=== PATIENT | female | born 1930 | race Caucasian/White ===

== ENCOUNTER 2017-03-06 14:00 | Inpatient (IN) | payer MEDICARE, OTHER ==
--- NOTE | 2017-03-06 13:28 | US ---
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 Patient stated has had bloody drainage from right axilla x 3 weeks and right arm swelling x 1 week. Last August had squamous cell CA removed from right wrist with question of right axillary n ode biopsy. Now has skin redness at right breast and chest wall and arm. SIDE PERFORMED: Right [employer] notes: Limited exam due to patient's inability to abduct arm or externally rotate. FINDINGS: Right Arm: Positive for DVT involving the Right Axillary Vein and in one of 2 Brachial Veins. There i s complex soft tissue surrounding the axillary vessels measuring 7.9 x 6.6 x 7.0cm. The clean in places operator will call the physician's office following dictation. IMPRESSION: 1. Exam positive for DVT involving the right axillary vein and one of 2 brachial veins. 2. Complex soft tissues surrounding the axillary vessels measuring up to 7.9 cm could represent phleg monous change in the setting of soft tissue infection. No discrete abscess.
[2017-03-06] MEDS ORDERED: SODIUM CHLORIDE 0.9% 500 ML IV STA (16:15)
[2017-03-06] MEDS ORDERED: HYDROmorphone 1 MG/ML 1 ML SYRINGE IVP STA ×2 (16:19→18:01)
--- NOTE | 2017-03-06 16:41 | ED ---
General Adult HPI - General Chief complaint: Extremity Injury, Upper Time Seen by Provider: 03/06/17 16:03 Source: patient, family, RN notes reviewed Mode of arrival: wheelchair - History of Present Illness Initial comments: 86-year-old female presents to the emergency department with a chief complaint of right arm swelling and blood clot. Patient has been struggling with this right arm swelling ever since she was diagnosed with sinus cancer and she had surgery on the lymph node where the cancer had metastases to. Patient states she's had compression on and off. Patient states that they stated an ultrasound and it was positive for blood clots that she was referred to the emergency department. Patient states she has had pain up and under the arm. Patient denies any fevers chills cough cold runny nose with this. Patient states that she sees Dr. Isaac for her cancer treatment. Patient states she continued to have the pain and discomfort so she was concerned so she thought that she should be evaluated.Patient denies any recent fever, chills, shortness of breath, chest pain, back pain, abdominal pain, nausea vomiting, numbness or tingling, dysuria or hematuria, constipation or diarrhea, headaches or visual changes, or any other current symptoms. - Related Data Home Medications Medication Instructions Recorded Confirmed Hydrochlorothiazide 25 mg PO DAILY 09/09/16 03/06/17 Losartan Potassium [Cozaar] 100 mg PO DAILY 09/09/16 03/06/17 Acetaminophen-Codeine 300-30mg 1 tab PO BID PRN 03/06/17 03/06/17 [Tylenol #3] Allergies Allergy/AdvReac Type Severity Reaction Status Date / Time No Known Allergies Allergy Verified 03/06/17 17:08 Review of Systems ROS Statement: Those systems with pertinent positive or pertinent negative responses have been documented in the HPI. ROS Other: All systems not noted in ROS Statement are negative. Past Medical History Past Medical History: Cancer, Hypertension Additional Past Medical History / Comment(s): LUMP RT AXILLA-PRESENT FOR APPROX 1 [id number] AND DRAINING,CATARACT RT EYE,SQUAMOUS CELL CA TO RT HAND-14 RADIATION FEBRUARY 2016 History of Any Multi-Drug Resistant Organisms: None Reported Past Surgical History: Back Surgery Additional Past Surgical History / Comment(s): SQUAMOUS CELL CA REMOVED AND GRAFT TO RT HAND,LT CATARACT,BENIGN LUMP REMOVED RT BREAST Past Anesthesia/Blood Transfusion Reactions: No Reported Reaction Additional Past Anesthesia/Blood Transfusion Reaction / Comment(s): VERTIGO,NO HX BLOOD TRANSFUSION Past Psychological History: Depression Smoking Status: Never smoker Past Alcohol Use History: None Reported Additional Past Alcohol Use History / Comment(s): 1 GLASS OF WINE BEFORE DINNER Past Drug Use History: None Reported - Past Family History Mother Family Medical History: No Reported History Father Additional Family Medical History / Comment(s): DIVERTICULITIS Brother(s) Family Medical History: Cancer Additional Family Medical History / Comment(s): LUNG General Exam General appearance: alert, in no apparent distress Head exam: Present: atraumatic, normocephalic, normal inspection ENT exam: Present: normal exam, mucous membranes moist Neck exam: Present: normal inspection. Absent: tenderness, meningismus, lymphadenopathy Respiratory exam: Present: normal lung sounds bilaterally. Absent: respiratory distress, wheezes, rales, rhonchi, stridor Cardiovascular Exam: Present: regular rate, normal rhythm, normal heart sounds. Absent: systolic murmur, diastolic murmur, rubs, gallop, clicks Extremities exam: Present: tenderness (More located around the elbow for location of pain to touch.). Absent: normal inspection (patient has a swollen right upper extremity from the shoulder to the hand), full ROM (Due to the range of motion due to pain) Neurological exam: Present: alert, oriented X3, CN II-XII intact. Absent: motor sensory deficit Psychiatric exam: Present: normal affect, normal mood Skin exam: Present: warm, dry, intact, normal color. Absent: rash Course Vital Signs 03/06/17 03/06/17 14:34 18:05 Temperature 99.4 F 98.4 F Pulse Rate 88 78 Respiratory 18 18 Rate Blood Pressure 137/63 172/65 O2 Sat by Pulse 95 94 L Oximetry - Reevaluation(s) Reevaluation #1: 03/06/17 18:14 Dr. isaac was contacted [place] the patient to be started on Zaroxolyn so. Medical Decision Making - Medical Decision Making 86 yo female presents to the ER emergency department with a chief complaint of ET extending from the axilla area to brachial arteries. At this time the patient does also appear to have a concern for soft tissue cellulitis to the right axilla where she did have surgery in the past. At this time we did do a culture of this. At this time we will admit the patient we will consult Dr. Brewer as well as Dr. Funez and admit to Dr. Olivas. We did discuss we will start antibiotics for the patient. Patient's family are in agreement and all questions have been answered. - Lab Data Result diagrams: 03/06/17 16:35 03/06/17 16:35 Lab Results 03/06/17 03/06/17 03/06/17 Range/Units 16:35 16:35 16:35 WBC 10.3 (3.8-10.6) k/uL RBC 3.98 (3.80-5.40) m/uL Hgb 11.5 (11.4-16.0) gm/dL Hct 36.1 (34.0-46.0) % MCV 90.8 (80.0-100.0) fL MCH 28.9 (25.0-35.0) pg MCHC 31.8 (31.0-37.0) g/dL RDW 14.5 (11.5-15.5) % Plt Count 371 (150-450) k/uL Neutrophils % 82 % Lymphocytes % 7 % Monocytes % 9 % Eosinophils % 0 % Basophils % 0 % Neutrophils # 8.5 H (1.3-7.7) k/uL Lymphocytes # 0.8 L (1.0-4.8) k/uL Monocytes # 0.9 (0-1.0) k/uL Eosinophils # 0.0 (0-0.7) k/uL Basophils # 0.0 (0-0.2) k/uL PT 10.3 (9.0-12.0) sec INR 1.0 (<1.1) APTT 25.3 (22.0-30.0) sec Sodium 135 L (137-145) mmol/L Potassium 3.8 (3.5-5.1) mmol/L Chloride 97 L (98-107) mmol/L Carbon Dioxide 30 (22-30) mmol/L Anion Gap 8 mmol/L BUN 14 (7-17) mg/dL Creatinine 0.57 (0.52-1.04) mg/dL Est GFR (MDRD) Af Amer >60 (>60 ml/min/1.73 sqM) Est GFR (MDRD) Non-Af >60 (>60 ml/min/1.73 sqM) Glucose 111 H (74-99) mg/dL Calcium 9.9 (8.4-10.2) mg/dL Total Bilirubin 0.4 (0.2-1.3) mg/dL AST 18 (14-36) U/L ALT 20 (9-52) U/L Alkaline Phosphatase 72 (38-126) U/L Total Protein 6.5 (6.3-8.2) g/dL Albumin 2.9 L (3.5-5.0) g/dL - Radiology Data Radiology results: report reviewed, image reviewed Interpreted by me: Outpatient was reviewed. Disposition Clinical Impression: Cellulitis of right axilla, DVT of right axillary vein, acute, Hyponatremia Disposition: ADMITTED IP TO THIS HOSP Condition: Stable Referrals: Art Caicedo DO [Primary Care Provider] - 1-2 days Time of Disposition: 18:05 Decision Date: 03/06/17 Decision Time: 18:05
[2017-03-06 17:47] LABS: Basophils % (A) 0 %; Eosinophils % (A) 0 %; HCT 36.1 % (34.0-46.0); HDW 2.48; HGB 11.5 gm/dL (11.4-16.0); Luc % (Auto) 2; Lymphocytes # (A) 0.8 k/uL (1.0-4.8); Lymphocytes % (A) 7 %; MCH 28.9 pg (25.0-35.0); MCHC 31.8 g/dL (31.0-37.0); MCV 90.8 fL (80.0-100.0); Mean Platelet Volume 6.4; Monocytes # (A) 0.9 k/uL (0-1.0); Monocytes % (A) 9 %; Neutrophils # (A) 8.5 k/uL (1.3-7.7); Neutrophils % (A) 82 %; RBC 3.98 m/uL (3.80-5.40); RDW 14.5 % (11.5-15.5); WBC 10.3 k/uL (3.8-10.6); WBC (Perox) 10.19
[2017-03-06 17:55] LABS: ALT 20 U/L (9-52); AST 18 U/L (14-36); Alkaline Phosphatase 72 U/L (38-126); Anion Gap 8 mmol/L; Blood Urea Nitrogen 14 mg/dL (7-17); Calcium 9.9 mg/dL (8.4-10.2); Carbon Dioxide 30 mmol/L (22-30); Chloride 97 mmol/L (98-107); Glucose 111 mg/dL (74-99); Non-African American GFR(MDRD) >60 (>60 ml/min/1.73 sqM); Potassium 3.8 mmol/L (3.5-5.1); Sodium 135 mmol/L (137-145); Total Bilirubin 0.4 mg/dL (0.2-1.3); Total Protein 6.5 g/dL (6.3-8.2)
[2017-03-06 18:04] LABS: Partial Thromboplastin Time 25.3 sec (22.0-30.0); Prothrombin Time 10.3 sec (9.0-12.0)
[2017-03-06] MEDS ORDERED: ONDANSETRON 4 MG/2 ML VIAL IVP PRN (18:06)
[2017-03-06] MEDS ORDERED: NALOXONE 0.4 MG/ML 1 ML VIAL IV PRN (18:06)
[2017-03-06] MEDS ORDERED: RIVAROXABAN 15 MG TAB PO STA (18:10)
[2017-03-06] MEDS ORDERED: Acetaminophen-Codeine 300-30mg TAB PO PRN (18:13)
[2017-03-06] MEDS ORDERED: AMPICILLIN-SULBACTAM 1.5 GM in SODIUM CHLORIDE 0.9% 50 ML IVPB STA (18:15)
[2017-03-06] MEDS: SODIUM CHLORIDE 0.9% 1,000 ML IV SCH (19:12)
[2017-03-06 20:26] VITALS: BMI 24.7
[2017-03-07] MEDS: HYDROmorphone 1 MG/ML 1 ML SYRINGE IV PRN ×5 (02:14→20:15)
[2017-03-07] MEDS: SODIUM CHLORIDE 0.9% 1,000 ML IV SCH ×2 (05:56→22:43)
[2017-03-07] MEDS ORDERED: RIVAROXABAN 15 MG TAB PO SCH (09:00)
[2017-03-07 09:30] LABS: Basophils % (A) 0 %; CH 29.1; CHCM 32.2; Eosinophils # (A) 0.1 k/uL (0-0.7); Eosinophils % (A) 1 %; HCT 35.8 % (34.0-46.0); HDW 2.52; HGB 11.7 gm/dL (11.4-16.0); Luc # (Auto) 0.17; Luc % (Auto) 2; Lymphocytes # (A) 0.5 k/uL (1.0-4.8); Lymphocytes % (A) 6 %; MCH 29.6 pg (25.0-35.0); MCHC 32.7 g/dL (31.0-37.0); MCV 90.6 fL (80.0-100.0); Mean Platelet Volume 6.9; Monocytes # (A) 0.4 k/uL (0-1.0); Monocytes % (A) 4 %; Neutrophils # (A) 7.8 k/uL (1.3-7.7); Neutrophils % (A) 86 %; RBC 3.96 m/uL (3.80-5.40); RDW 14.7 % (11.5-15.5); WBC 9.1 k/uL (3.8-10.6); WBC (Perox) 9.06
[2017-03-07] MEDS: HYDROCHLOROTHIAZIDE 25 MG TAB PO SCH (09:36)
[2017-03-07] MEDS: LOSARTAN 50 MG TAB PO SCH (09:36)
[2017-03-07] MEDS: RIVAROXABAN 15 MG TAB PO SCH ×2 (09:36→16:30)
[2017-03-07] MEDS ORDERED: ALPRAZolam 0.5 MG TAB PO PRN (09:46)
--- NOTE | 2017-03-07 15:19 | P.GSCN ---
History of Present Illness Consult date: 03/07/17 Reason for Consult: Infection in the axilla History of present illness: The patient's pleasant 86-year-old female who I have seen in the past. Last fall I did a biopsy of axillary mass that came back as metastatic squamous cell cancer. She has subsequently underwent radiation. She finished that about 2 months ago. She recently developed acute swelling in the right upper extremity along with drainage in her axilla. An quite a bit of trouble moving her arm. And pain in the arm. Review of Systems All systems: negative Past Medical History Past Medical History: Cancer, Hypertension Additional Past Medical History / Comment(s): Metastatic SQUAMOUS CELL CA from RT HAND to her axilla-14 RADIATION FEBRUARY 2016. Biopsy right axilla History of Any Multi-Drug Resistant Organisms: None Reported Past Surgical History: Back Surgery Additional Past Surgical History / Comment(s): SQUAMOUS CELL CA REMOVED AND GRAFT TO RT HAND, biopsy right axilla ,LT CATARACT,BENIGN LUMP REMOVED RT BREAST Past Anesthesia/Blood Transfusion Reactions: No Reported Reaction Additional Past Anesthesia/Blood Transfusion Reaction / Comm: VERTIGO,NO HX BLOOD TRANSFUSION Past Psychological History: Depression Smoking Status: Never smoker Past Alcohol Use History: None Reported Additional Past Alcohol Use History / Comment(s): 1 GLASS OF WINE BEFORE DINNER Past Drug Use History: None Reported - Past Family History Mother Family Medical History: No Reported History Father Additional Family Medical History / Comment(s): DIVERTICULITIS Brother(s) Family Medical History: Cancer Additional Family Medical History / Comment(s): LUNG Medications and Allergies Home Medications Medication Instructions Recorded Confirmed Type Hydrochlorothiazide 25 mg PO DAILY 09/09/16 03/06/17 History Losartan Potassium [Cozaar] 100 mg PO DAILY 09/09/16 03/06/17 History Acetaminophen-Codeine 300-30mg 1 tab PO BID PRN 03/06/17 03/06/17 History [Tylenol #3] Allergies Allergy/AdvReac Type Severity Reaction Status Date / Time No Known Allergies Allergy Verified 03/06/17 17:08 Surgical - Exam Osteopathic Statement: *. No significant issues noted on an osteopathic structural exam other than those noted in the History and Physical/Consult. Vital Signs Temp Pulse Resp BP Pulse Ox 99.4 F 88 18 137/63 95 03/06/17 14:34 03/06/17 14:34 03/06/17 14:34 03/06/17 14:34 03/06/17 14:34 - General well developed, well nourished - Eyes normal ocular movement - Integumentary Mild erythema and swelling right upper extremity encompassing the right shoulder. The right axilla has a significant amount of serous drainage dressing along with some necrotic appearing tissue. There is an approximately 2 cm skin lesion with some breakdown that appears to be recurrent squamous cell cancer Results - Labs 03/07/17 08:43 03/06/17 16:35 Abnormal Lab Results - Last 24 Hours (Table) 03/07/17 Range/Units 08:43 Neutrophils # 7.8 H (1.3-7.7) k/uL Lymphocytes # 0.5 L (1.0-4.8) k/uL Microbiology - Last 24 Hours (Table) 03/06/17 18:30 Gram Stain - Preliminary Axilla - Right Wound Culture - Preliminary - Imaging Additional studies: Report from right axilla reviewed Assessment and Plan (1) Metastatic squamous cell carcinoma Status: Acute (2) Cellulitis of right axilla Status: Acute (3) DVT of right axillary vein, acute Status: Acute Plan: She appears to have recurrent squamous cell cancer in the right axilla. There is likely a component of cellulitis due to the fact the wound is open. At present I would treat the DVT. I would give her a course of antibiotics. Physical therapy for range of motion. I did discuss the case with Dr. Isaac. I can reevaluate her in the office in 2-4 weeks. We'll see how the swelling in her arm is doing. She may be a candidate for further resection of the metastasis , although I doubt that would be curative. I will follow her up in the office.
[2017-03-07] MEDS ORDERED: HEPARIN SODIUM,PORCINE 5,000 UNIT/ML 1 ML VIAL IV PRN (16:44)
--- NOTE | 2017-03-07 16:44 | P.CONS ---
History of Present Illness - Reason for Consult Consult date: 03/07/17 DVT Requesting physician: Estefany Genao - Chief Complaint RUE pain and swelling - History of Present Illness Ms. Perez is a very pleasant female patient who has seen Dr. Isaac in the past. She initially presented to her PCP in late 07/12 with a lump in the rt. armpit that was mildly painful, skin was reddened, no improvement with a course of antibiotics. She had an US on 08/02/16 revealing a 3.9 x 3.4 x 4.1 cm irregular mass, core biopsy on 08/16/16 revealed fibroadipose and skeletal muscle tissue with scant atypical squamous cells. She was referred to Dr. Isaac further evaluation and recommendations. She had a history of squamous cell skin cancer at the [address] treated with surgical excision and skin grafting about a year prior. She had an excisional biopsy on 09/13/16 revealing metastatic squamous cell cancer in a node with extranodal spread. Staging PET was done showing no other sites of disease. She completed XRT about 2 months ago. She is admitted due to increased and progressive pain and redness in the right axilla over the last 2 weeks, she states there has been persistent drainage from the axilla since radiation. She denies any fever, she does not want to move the RUE due to severe pain, it hurts to close her hand, she denies numbness or tingling. No other physical c/o on a 10 point ROS. Review of Systems All systems: negative Constitutional: Reports as per HPI Past Medical History Past Medical History: Cancer, Hypertension Additional Past Medical History / Comment(s): Metastatic SQUAMOUS CELL CA from RT HAND to her axilla-14 RADIATION FEBRUARY 2016. Biopsy right axilla History of Any Multi-Drug Resistant Organisms: None Reported Past Surgical History: Back Surgery Additional Past Surgical History / Comment(s): SQUAMOUS CELL CA REMOVED AND GRAFT TO RT HAND, biopsy right axilla ,LT CATARACT,BENIGN LUMP REMOVED RT BREAST Past Anesthesia/Blood Transfusion Reactions: No Reported Reaction Additional Past Anesthesia/Blood Transfusion Reaction / Comm: VERTIGO,NO HX BLOOD TRANSFUSION Past Psychological History: Depression Smoking Status: Never smoker Past Alcohol Use History: None Reported Additional Past Alcohol Use History / Comment(s): 1 GLASS OF WINE BEFORE DINNER Past Drug Use History: None Reported - Past Family History Mother Family Medical History: No Reported History Father Additional Family Medical History / Comment(s): DIVERTICULITIS Brother(s) Family Medical History: Cancer Additional Family Medical History / Comment(s): LUNG Medications and Allergies Home Medications Medication Instructions Recorded Confirmed Type Hydrochlorothiazide 25 mg PO DAILY 09/09/16 03/06/17 History Losartan Potassium [Cozaar] 100 mg PO DAILY 09/09/16 03/06/17 History Acetaminophen-Codeine 300-30mg 1 tab PO BID PRN 03/06/17 03/06/17 History [Tylenol #3] Allergies Allergy/AdvReac Type Severity Reaction Status Date / Time No Known Allergies Allergy Verified 03/06/17 17:08 Physical Exam Vitals: Vital Signs Temp Pulse Pulse Resp BP BP Pulse Ox 03/07/17 15:57 16 03/07/17 07:00 98.5 F 83 16 154/69 93 L 03/06/17 23:00 98.6 F 80 16 163/73 93 L 03/06/17 19:14 97.6 F 85 18 159/79 94 L 03/06/17 18:05 98.4 F 78 18 172/65 94 L Intake and Output 03/07/17 03/07/17 03/07/17 06:59 14:59 22:59 Other: # Voids 1 - Constitutional General appearance: cooperative, severe distress - EENT Eyes: anicteric sclerae, EOMI, PERRLA, normal appearance ENT: normal oropharynx - Neck Neck: no lymphadenopathy - Respiratory Respiratory: bilateral: CTA - Cardiovascular Heart sounds: normal: S1, S2 - Gastrointestinal General gastrointestinal: no absent bowel sounds, no decreased bowel sounds, no distended, no hepatomegaly, no hyperactive bowel sounds, normal bowel sounds, no organomegaly, no rigid, no scaphoid, soft, no splenomegaly, no tenderness, no umbilical hernia, no ventral hernia - Integumentary Right axilla swollen, reddened, foul odor, moderate amount of bloody drainage, the right arm and hand are slightly swollen, pain with passive movement of the arm. - Neurologic Generalized tremor is noted Neurologic: CNII-XII intact - Musculoskeletal Musculoskeletal: generalized weakness - Psychiatric Psychiatric: A&O x's 3, appropriate affect, intact judgment & insight Results CBC & Chem 7: 03/07/17 08:43 03/06/17 16:35 Labs: Abnormal Lab Results - Last 24 Hours (Table) 03/07/17 Range/Units 08:43 Neutrophils # 7.8 H (1.3-7.7) k/uL Lymphocytes # 0.5 L (1.0-4.8) k/uL Microbiology - Last 24 Hours (Table) 03/06/17 18:30 Gram Stain - Preliminary Axilla - Right Wound Culture - Preliminary Venous US: report reviewed Assessment and Plan (1) DVT of right axillary vein, acute Narrative/Plan: Known DVT of RUE, felt to be related surgery and radiation therapy to the area. Pt was stared in oral anticoagulation but due to pt being symptomatic she will be switched over to heparin drip to see if DVT symptoms can be alleviated. Last dose of xarelto was 0940 so plan to start heparin drip at 2130, did discuss with RN caring for pt. Status: Acute (2) Metastatic squamous cell carcinoma Narrative/Plan: Pt is s/p surgery and XRT about 2 months ago. The area is very tender, warm with notable foul drainage. ID has been consulted, cultures ordered. We will follow and see how pt progresses, the presentation could be related to malignancy so Surgery will be consulted as appropriate and based on response to treatment. Status: Chronic
[2017-03-07] MEDS ORDERED: HEPARIN SODIUM,PORCINE/D5W PMX 25,000 UNIT in DEXTROSE/WATER 1 500ML.BAG IV SCH (16:45)
[2017-03-07 18:01] LABS: Basophils % (A) 0 %; CH 28.8; CHCM 31.2; Eosinophils # (A) 0.1 k/uL (0-0.7); Eosinophils % (A) 1 %; HCT 33.1 % (34.0-46.0); HDW 2.48; HGB 10.2 gm/dL (11.4-16.0); Hypochromasia Slight; Luc % (Auto) 3; Lymphocytes # (A) 0.6 k/uL (1.0-4.8); Lymphocytes % (A) 7 %; MCH 28.4 pg (25.0-35.0); MCHC 30.7 g/dL (31.0-37.0); MCV 92.6 fL (80.0-100.0); Mean Platelet Volume 6.3; Monocytes # (A) 0.6 k/uL (0-1.0); Monocytes % (A) 7 %; Neutrophils # (A) 6.7 k/uL (1.3-7.7); Neutrophils % (A) 82 %; RBC 3.58 m/uL (3.80-5.40); RDW 14.5 % (11.5-15.5); WBC 8.2 k/uL (3.8-10.6); WBC (Perox) 9.11
[2017-03-07 18:29] LABS: INR 1.3 (<1.1); Partial Thromboplastin Time 34.6 sec (22.0-30.0); Prothrombin Time 12.8 sec (9.0-12.0)
[2017-03-07] MEDS ORDERED: TEMAZEPAM 15 MG CAP PO PRN (19:06)
[2017-03-07] MEDS: HYDROcodone/APAP 5-325MG 1 EACH TAB PO PRN (21:15)
[2017-03-07] MEDS: HEPARIN SODIUM,PORCINE/D5W PMX 25,000 UNIT in DEXTROSE/WATER 1 500ML.BAG IV SCH (22:45)
--- NOTE | 2017-03-07 23:45 | P.CONS ---
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 The pain was so severe she could not function and family brought her to the emergency center. The pain medication she is now much more comfortable. Laying still in bed. She is actually quite comfortable. But any motion of the arm causes her to have severe pain. She has been evaluated by oncology. 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 PET scanning revealed evidence of no other extensive disease. She did undergo radiation therapy to the site was doing relatively well until the onset of the current pain and swelling redness and severe inability to move the arm because of pain. She has ongoing drainage that is now much worse. She does state there is any pain with any motion of that upper extremity at all although hand motion is less painful today. She does not believe she's had a high-grade fever chill or rigors. She does feel poorly. She is very scared was going to happen next. Of note when asking her if she knew who Dr. Isaac was she was not sure. However she has a Dr. Leung was her 's doctor. She does not recall seeing the nurse practitioner from oncology at all today. Review of Systems Poor historian HEENT:Denies headache or acute visual change. Denies sinus or mouth discomforts. Denies neck stiffness or pain. Denies significant oral cavity pain. Denies difficulty on swallowing. Lungs: Denies significant shortness of breath, cough, sputum production, or hemoptysis. Cardiovascular: Denies significant shortness of breath, chest pain, chest wall pain, orthopnea, dyspnea on exertion, syncope Gastrointestinal:Denies nausea, vomiting, diarrhea, constipation, hematemesis, melena, hematochezia. No no significant change of bowel habit noticed. Musculoskeletal: Severe pain to the right axilla as per the HPI denies back pain Skin: Denies new rash or lesions. No new ulcers or wounds are related.. Neuro: He has severe pain to the right arm and with that it's hard to determine how much weakness she has she has discomfort upon any attempts to move the arm. Does appear to have intact sensation over all of her fingers in the right hand however. Psychiatric: Has significant anxiety about current illness Endocrine: Feels very fatigued and has had weight loss. Past Medical History Past Medical History: Cancer, Hypertension Additional Past Medical History / Comment(s): Metastatic SQUAMOUS CELL CA from RT HAND to her axilla-14 RADIATION FEBRUARY 2016. Biopsy right axilla History of Any Multi-Drug Resistant Organisms: None Reported Past Surgical History: Back Surgery Additional Past Surgical History / Comment(s): SQUAMOUS CELL CA REMOVED AND GRAFT TO RT HAND, biopsy right axilla ,LT CATARACT,BENIGN LUMP REMOVED RT BREAST Past Anesthesia/Blood Transfusion Reactions: No Reported Reaction Additional Past Anesthesia/Blood Transfusion Reaction / Comm: VERTIGO,NO HX BLOOD TRANSFUSION Past Psychological History: Depression Additional Psychological History / Comment(s): . Lifelong nonsmoker. Retired worship executive officer. No experience. No travel history. No animal exposures. Adult children assist Smoking Status: Never smoker Past Alcohol Use History: None Reported Additional Past Alcohol Use History / Comment(s): 1 GLASS OF WINE BEFORE DINNER Past Drug Use History: None Reported - Past Family History Mother Family Medical History: No Reported History Father Additional Family Medical History / Comment(s): DIVERTICULITIS Brother(s) Family Medical History: Cancer Additional Family Medical History / Comment(s): LUNG Medications and Allergies Home Medications and Allergies Comment(s): Current Medications Acetaminophen/Codeine Phosphate (Tylenol #3) 1 each PO BID PRN PRN Reason: Pain Hydrocodone Bitart/Acetaminophen ([place] 5-325) 1 each PO Q6HR PRN PRN Reason: Pain Last Admin: 03/07/17 21:15 Dose: 1 each Alprazolam (Xanax) 0.5 mg PO TID PRN PRN Reason: Anxiety Heparin Sodium (Porcine) (Heparin) 0 unit IV PER PROTOCOL PRN; Protocol PRN Reason: Low PTT Hydrochlorothiazide (Hydrodiuril) 25 mg PO DAILY [facility] Last Admin: 03/07/17 09:36 Dose: 25 mg Hydromorphone HCl (Dilaudid) 1 mg IV Q3HR PRN PRN Reason: Severe Pain Last Admin: 03/07/17 20:15 Dose: 1 mg Sodium Chloride (Saline 0.9%) 1,000 mls @ 80 mls/hr IV .[id number] [facility] Last Admin: 03/07/17 22:43 Dose: 80 mls/hr Heparin Sodium/Dextrose 25,000 (unit/ IV Solution) 500 mls @ 16.68 mls/hr IV .Q24H SHY; 12 UNITS/KG/HR PRN Reason: Protocol Last Admin: 03/07/17 22:45 Dose: 12 units/kg/hr, 16.68 mls/hr Losartan Potassium (Cozaar) 100 mg PO DAILY [facility] Last Admin: 03/07/17 09:36 Dose: 100 mg Naloxone HCl (Narcan) 0.2 mg IV Q2M PRN PRN Reason: Opioid Reversal Ondansetron HCl (Zofran) 4 mg IVP Q8HR PRN PRN Reason: Nausea And Vomiting Temazepam (Restoril) 15 mg PO HS PRN PRN Reason: Insomnia Home Medications Medication Instructions Recorded Confirmed Type Hydrochlorothiazide 25 mg PO DAILY 09/09/16 03/06/17 History Losartan Potassium [Cozaar] 100 mg PO DAILY 09/09/16 03/06/17 History Acetaminophen-Codeine 300-30mg 1 tab PO BID PRN 03/06/17 03/06/17 History [Tylenol #3] Allergies Allergy/AdvReac Type Severity Reaction Status Date / Time No Known Allergies Allergy Verified 03/06/17 17:08 Physical Exam Vitals: Vital Signs Temp Pulse Pulse Resp BP Pulse Ox 03/07/17 15:57 16 03/07/17 15:00 98.8 F 78 18 151/64 95 03/07/17 07:00 98.5 F 83 16 154/69 93 L Intake and Output 03/07/17 03/07/17 03/08/17 14:59 22:59 06:59 Other: # Voids 3 HEENT: Anicteric conjunctiva are pink and moist nasal mucosa grossly intact without significant lesions, there is no thrush.denture in place Neck: The neck is supple without significant lymphadenopathy or thyromegaly. Lungs: Good bilateral air entry without significant crackles or wheezing. There is no significant bronchial sounds. There is no egophony or dullness. Heart: Regular rate and rhythm with an audible S1-S2, no S3 no S4. There is no significant murmur click or rub, PMI was nondisplaced. Abdomen: Positive bowel sounds soft and nontender without palpable masses or organomegaly. There was no guarding or rebound. Extremities: the left upper extremity reveals evidence of no lesions. The right upper extremity shows evidence of the well-healed scar on the dorsum of the right hand where she had the cancer resection and skin grafting. Donor site from the right clavicular area is well-healed. The right arm however is evidence of the extensive swelling compared to the left. There is evidence of the thin drainage from the axillary area, evaluation this causes her severe pain. She is able to move the hand but it is very painful. Does have intact sensation over all the fingers. Neuro: Awake alert oriented to person place ,does seem to have some memory deficits There are no acute new gross focal sensory motor deficits. Results CBC & Chem 7: 03/07/17 17:26 03/06/17 16:35 Labs: Abnormal Lab Results - Last 24 Hours (Table) 03/07/17 03/07/17 03/07/17 Range/Units 08:43 17: 17: RBC 3.58 L (3.80-5.40) m/uL Hgb 10.2 L (11.4-16.0) gm/dL Hct 33.1 L (34.0-46.0) % MCHC 30.7 L (31.0-37.0) g/dL Neutrophils # 7.8 H (1.3-7.7) k/uL Lymphocytes # 0.5 L 0.6 L (1.0-4.8) k/uL PT 12.8 H (9.0-12.0) sec APTT 34.6 H (22.0-30.0) sec Microbiology - Last 24 Hours (Table) 03/06/17 18:30 Gram Stain - Preliminary Axilla - Right Wound Culture - Preliminary Presumptive Staph aureus Laboratory Results WBC 8.2 k/uL (3.8-10.6) 03/07/17 17: RBC 3.58 m/uL (3.80-5.40) L 03/07/17 17:26 Hgb 10.2 gm/dL (11.4-16.0) L 03/07/17 17: Hct 33.1 % (34.0-46.0) L 03/07/17 17: MCV 92.6 fL (80.0-100.0) 03/07/17 17: MCH 28.4 pg (25.0-35.0) 03/07/17 17:26 MCHC 30.7 g/dL (31.0-37.0) L 03/07/17 17:26 RDW 14.5 % (11.5-15.5) 03/07/17 17:26 Plt Count 312 k/uL (150-450) 03/07/17 17: Neutrophils % 82 % 03/07/17 17: Lymphocytes % 7 % 03/07/17 17: Monocytes % 7 % 03/07/17 17: Eosinophils % 1 % 03/07/17 17: Basophils % 0 % 03/07/17 17: Neutrophils # 6.7 k/uL (1.3-7.7) 03/07/17 17: Lymphocytes # 0.6 k/uL (1.0-4.8) L 03/07/17 17: Monocytes # 0.6 k/uL (0-1.0) 03/07/17 17: Eosinophils # 0.1 k/uL (0-0.7) 03/07/17 17: Basophils # 0.0 k/uL (0-0.2) 03/07/17 17:26 Hypochromasia Slight 03/07/17 17:26 PT 12.8 sec (9.0-12.0) H 03/07/17 17:26 INR 1.3 (<1.1) 03/07/17 17: APTT 34.6 sec (22.0-30.0) H 03/07/17 17:26 Sodium 135 mmol/L (137-145) L 03/06/17 16:35 Potassium 3.8 mmol/L (3.5-5.1) 03/06/17 16:35 Chloride 97 mmol/L (98-107) L 03/06/17 16:35 Carbon Dioxide 30 mmol/L (22-30) 03/06/17 16:35 Anion Gap 8 mmol/L 03/06/17 16:35 BUN 14 mg/dL (7-17) 03/06/17 16:35 Creatinine 0.57 mg/dL (0.52-1.04) 03/06/17 16:35 Est GFR (MDRD) Af Amer >60 (>60 ml/min/1.73 sqM) 03/06/17 16:35 Est GFR (MDRD) Non-Af >60 (>60 ml/min/1.73 sqM) 03/06/17 16:35 Glucose 111 mg/dL (74-99) H 03/06/17 16:35 Calcium 9.9 mg/dL (8.4-10.2) 03/06/17 16:35 Total Bilirubin 0.4 mg/dL (0.2-1.3) 03/06/17 16:35 AST 18 U/L (14-36) 03/06/17 16:35 ALT 20 U/L (9-52) 03/06/17 16:35 Alkaline Phosphatase 72 U/L (38-126) 03/06/17 16:35 Total Protein 6.5 g/dL (6.3-8.2) 03/06/17 16:35 Albumin 2.9 g/dL (3.5-5.0) L 03/06/17 16:35 Microbiology 03/06/17 18:30 Axilla - Right Gram Stain - Preliminary 03/06/17 18:30 Axilla - Right Wound Culture - Preliminary Presumptive Staph aureus Assessment and Plan (1) Metastatic squamous cell carcinoma Status: Chronic (2) Cellulitis of right axilla Narrative/Plan: 86-year-old female who has a history of squamous cell carcinoma of the right axillary area that is metastatic and extranodal. She's had biopsy and radiation therapy. She apparently has had some chronic serous drainage since the interventions occurred. She presents to the hospital with severe acute pain to the right arm. Evaluation revealed evidence of a deep venous thrombosis which may be the etiology of the current change of swelling and pain. She's been seen by hematology oncology. And is receiving anticoagulation with heparin. It is so the patient has had radiation to the area and likely is having some difficulties related to that as far as a nonhealing nature to the tissue. However likely has chronic lymphatic drainage to the area. Does however have evidence of a secondary staphylococcal infection at this point in time. Daptomycin will be added in that would like to avoid vancomycin given her significant frailty at this time. Cultures are process will further direct antibiotic therapy. Blood culture is also requested. And baseline laboratories. The patient's fears are addressed, we'll ensure that she has good pain control which is something she is very worried about. Continue to elevate the limb on pillows as she is doing. ABG is used for drainage control. Status: Acute (3) DVT of right axillary vein, acute Status: Acute
[2017-03-08] MEDS: DAPTOmycin 500 MG in SODIUM CHLORIDE 0.9% 50 ML IV SCH ×2 (00:40→22:42)
[2017-03-08] MEDS ORDERED: LORazepam 2 MG/ML SYRINGE IV STA (01:29)
[2017-03-08] MEDS: HYDROmorphone 1 MG/ML 1 ML SYRINGE IV PRN ×3 (03:40→22:39)
[2017-03-08 05:07] LABS: Basophils % (A) 1 %; CH 29.3; CHCM 31.8; Eosinophils # (A) 0.1 k/uL (0-0.7); Eosinophils % (A) 1 %; HCT 32.6 % (34.0-46.0); HDW 2.49; HGB 10.3 gm/dL (11.4-16.0); Luc # (Auto) 0.15; Luc % (Auto) 2; Lymphocytes # (A) 0.6 k/uL (1.0-4.8); Lymphocytes % (A) 9 %; MCH 29.1 pg (25.0-35.0); MCHC 31.4 g/dL (31.0-37.0); MCV 92.6 fL (80.0-100.0); Mean Platelet Volume 6.1; Monocytes # (A) 0.5 k/uL (0-1.0); Monocytes % (A) 7 %; Neutrophils % (A) 81 %; RBC 3.53 m/uL (3.80-5.40); RDW 14.6 % (11.5-15.5); WBC 7.5 k/uL (3.8-10.6); WBC (Perox) 7.68
[2017-03-08 05:31] LABS: C Reactive Protein 82.4 mg/L (<10.0)
[2017-03-08] MEDS: HEPARIN SODIUM,PORCINE 5,000 UNIT/ML 1 ML VIAL IV PRN ×2 (05:48→11:02)
--- NOTE | 2017-03-08 07:31 | HP ---
DATE OF ADMISSION: The chief complaint is right arm swelling. HISTORY OF PRESENT ILLNESS: This 86-year-old woman with the past medical history of multiple medical problems including hypertension, history of metastasis squamous cell carcinoma, history of back surgery, DJD, history of depression, being followed by Dr. Art Caicedo in the outpatient setting had an axillary mass and the patient underwent a biopsy and the patient was found to have squamous cell carcinoma. The primary was thought to be in the right dorsum of the hand. Subsequently, the patient underwent radiation but currently the patient is complaining of pain and swelling and some erythema of the right arm and the patient does have weakness of the right hand also. Because of the multiple complex medical issues, patient came to [facility] and admitted for further evaluation and treatment. There is no history of fever, chills or rigors. No history of headache, loss of consciousness or seizures. PAST MEDICAL HISTORY: History of hypertension, history of metastasis squamous cell carcinoma, history of back surgery, history of DJD, history vertigo, history of depression. Medications prior to admission include home medications are: 1. Losartan. 2. Cozaar 100 mg p.o. daily. 3. Tylenol No. 3 one tablet b.i.d. p.r.n. 4. Hydrochlorothiazide 25 mg p.o. daily. Allergies are none. FAMILY HISTORY: History of diverticulitis in the family. SOCIAL HISTORY: No history of smoking. No history of alcohol intake. REVIEW OF SYSTEMS: ENT: No diminishing hearing, diminished vision. CARDIOVASCULAR: No angina or palpitations. RESPIRATORY: As mentioned earlier. GI: No nausea. : No dysuria. NERVOUS SYSTEM: No numbness or weakness. ALLERGY/IMMUNOLOGY: No asthma or hayfever. MUSCULOSKELETAL: As mentioned earlier. HEMATOLOGY/ONCOLOGY: No history of anemia. ENDOCRINE: No history of diabetes or hypothyroidism. CONSTITUTIONAL: As mentioned earlier. DERMATOLOGY: As mentioned earlier. RHEUMATOLOGY: Negative. PSYCHIATRY: As mentioned earlier. PHYSICAL EXAM: Patient is alert and oriented x3. Pulse 78, blood pressure 151/64, respirations 18, temperature 98.8, pulse ox 94% on room air. HEENT: Conjunctivae normal. NECK: No jugular venous distension. CARDIOVASCULAR SYSTEM: S1, S2, muffled. RESPIRATORY: Breath sounds diminished at the bases. A few scattered rhonchi. No crackles. ABDOMEN: Soft, nontender, no mass palpable. EXTREMITIES: Right arm swelling and erythema present. Movements are painful. NERVOUS SYSTEM: No focal deficits. LYMPHATICS: No lymph node enlargement of the neck or groin at this time. SKIN: As mentioned earlier. LABS: WBC 8.2, hemoglobin is 10.2. INR is 1.3 and the PT is 12.8. Glucose 111, albumin is 2.9. ASSESSMENT: 1. Acute cellulitis of the right axilla. 2. Acute deep venous thrombosis of the right axial vein and one of two brachial veins. 3. Soft tissue mass in the axillary vessels in the ultrasound. 4. Squamous cell cancer, metastatic. 5. Hypertension. 6. Status post radiation. 7. Weakness of the right upper arm. 8. History of cataracts. 9. History of vertigo. 10. History of depression, not otherwise specified. 11. FULL CODE. RECOMMENDATION: In this 86-year-old woman who presented with multiple complex medical issues, will monitor the patient closely. Continue with the current medications, continue with the symptomatic treatment. Otherwise, at this time, will monitor the patient closely. We will recommend IV antibiotics and obtain evaluation from Infectious Disease and Surgery as well. Hematology/Oncology has been consulted. The patient has been given a dose of Xarelto. Patient is on IV heparin per protocol. Prognosis guarded. Discussed with the patient's family. Symptomatic treatment will be provided. Further recommendations to follow.
[2017-03-08] MEDS: SODIUM CHLORIDE 0.9% 1,000 ML IV SCH ×2 (08:13→22:38)
[2017-03-08] MEDS: LOSARTAN 50 MG TAB PO SCH (08:14)
[2017-03-08] MEDS: HYDROCHLOROTHIAZIDE 25 MG TAB PO SCH (08:14)
[2017-03-08] MEDS: HYDROcodone/APAP 5-325MG 1 EACH TAB PO PRN ×2 (17:09→23:32)
[2017-03-08] MEDS: HEPARIN SODIUM,PORCINE/D5W PMX 25,000 UNIT in DEXTROSE/WATER 1 500ML.BAG IV SCH (22:40)
--- NOTE | 2017-03-08 23:10 | P.PN ---
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 The pain was so severe she could not function and family brought her to the emergency center. The pain medication she is now much more comfortable. Laying still in bed. She is actually quite comfortable. But any motion of the arm causes her to have severe pain. She has been evaluated by oncology. 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 PET scanning revealed evidence of no other extensive disease. She did undergo radiation therapy to the site was doing relatively well until the onset of the current pain and swelling redness and severe inability to move the arm because of pain. She has ongoing drainage that is now much worse. She does state there is any pain with any motion of that upper extremity at all although hand motion is less painful today. She does not believe she's had a high-grade fever chill or rigors. She does feel poorly. She is very scared was going to happen next. Of note when asking her if she knew who Dr. Isaac was she was not sure. However she has a Dr. Leung was her 's doctor. She does not recall seeing the nurse practitioner from oncology at all today. Patient has significant confusion overnight seems to be little more calm at this time. Is definitely in less pain Objective - Vital Signs Vital signs: Vital Signs Temp 99.3 F 03/08/17 15:00 Pulse 87 03/08/17 15:00 Resp 20 03/08/17 15:45 BP 157/63 03/08/17 15:00 Pulse Ox 96 03/08/17 15:00 Intake & Output 03/08/17 03/08/17 03/09/17 06:59 18:59 06:59 Intake Total 617.594 889.398 93.008 Balance 617.594 889.398 93.008 Intake: Intake, IV Titration 117.594 289.398 93.008 Amount Heparin Sodium,Porcine/ 117.594 289.398 93.008 D5w Pmx 25,000 unit In Dextrose/Water 1 500ml. bag @ 12 UNITS/KG/HR 16. 68 mls/hr IV .Q24H [facility] Rx #:[id number] Oral 500 600 Other: # Voids 1 2 - Exam HEENT: Anicteric conjunctiva are pink and moist nasal mucosa grossly intact without significant lesions, there is no thrush.denture in place Neck: The neck is supple without significant lymphadenopathy or thyromegaly. Lungs: Good bilateral air entry without significant crackles or wheezing. There is no significant bronchial sounds. There is no egophony or dullness. Heart: Regular rate and rhythm with an audible S1-S2, no S3 no S4. There is no significant murmur click or rub, PMI was nondisplaced. Abdomen: Positive bowel sounds soft and nontender without palpable masses or organomegaly. There was no guarding or rebound. Extremities: the left upper extremity reveals evidence of no lesions. The right upper extremity shows evidence of the well-healed scar on the dorsum of the right hand where she had the cancer resection and skin grafting. Donor site from the right clavicular area is well-healed. The right arm however is evidence of the improvement of the swelling from yesterday. There is evidence of the thin drainage from the axillary area, evaluation to the area causes less pain. She is able to move the hand and arm today with less pain. Does have intact sensation over all the fingers. Neuro: Awake alert oriented to person place ,does seem to have some memory deficits There are no acute new gross focal sensory motor deficits. - Labs CBC & Chem 7: 03/08/17 04:50 03/06/17 16:35 Labs: Abnormal Lab Results - Last 24 Hours (Table) 03/08/17 03/08/17 03/08/17 Range/Units 04:50 04:50 04:50 RBC 3.53 L (3.80-5.40) m/uL Hgb 10.3 L (11.4-16.0) gm/dL Hct 32.6 L (34.0-46.0) % Lymphocytes # 0.6 L (1.0-4.8) k/uL ESR 87 H (0-20) mm/hr APTT 34.5 H (22.0-30.0) sec C-Reactive Protein (<10.0) mg/L Prealbumin (18-36) mg/dL 03/08/17 03/08/17 03/08/17 Range/Units 04:50 08:52 16:56 RBC (3.80-5.40) m/uL Hgb (11.4-16.0) gm/dL Hct (34.0-46.0) % Lymphocytes # (1.0-4.8) k/uL ESR (0-20) mm/hr APTT 31.2 H 47.2 H (22.0-30.0) sec C-Reactive Protein 82.4 H (<10.0) mg/L Prealbumin 8 L (18-36) mg/dL Microbiology - Last 24 Hours (Table) 03/06/17 18:30 Gram Stain - Final Axilla - Right Wound Culture - Final Staphylococcus aureus Laboratory Results WBC 7.5 k/uL (3.8-10.6) 03/08/17 04:50 RBC 3.53 m/uL (3.80-5.40) L 03/08/17 04:50 Hgb 10.3 gm/dL (11.4-16.0) L 03/08/17 04:50 Hct 32.6 % (34.0-46.0) L 03/08/17 04:50 MCV 92.6 fL (80.0-100.0) 03/08/17 04:50 MCH 29.1 pg (25.0-35.0) 03/08/17 04:50 MCHC 31.4 g/dL (31.0-37.0) 03/08/17 04:50 RDW 14.6 % (11.5-15.5) 03/08/17 04:50 Plt Count 293 k/uL (150-450) 03/08/17 04:50 Neutrophils % 81 % 03/08/17 04:50 Lymphocytes % 9 % 03/08/17 04:50 Monocytes % 7 % 03/08/17 04:50 Eosinophils % 1 % 03/08/17 04:50 Basophils % 1 % 03/08/17 04:50 Neutrophils # 6.0 k/uL (1.3-7.7) 03/08/17 04:50 Lymphocytes # 0.6 k/uL (1.0-4.8) L 03/08/17 04:50 Monocytes # 0.5 k/uL (0-1.0) 03/08/17 04:50 Eosinophils # 0.1 k/uL (0-0.7) 03/08/17 04:50 Basophils # 0.0 k/uL (0-0.2) 03/08/17 04:50 Hypochromasia Slight 03/07/17 17:26 ESR 87 mm/hr (0-20) H 03/08/17 04:50 PT 12.8 sec (9.0-12.0) H 03/07/17 17:26 INR 1.3 (<1.1) 03/07/17 17:26 APTT 47.2 sec (22.0-30.0) H 03/08/17 16:56 Sodium 135 mmol/L (137-145) L 03/06/17 16:35 Potassium 3.8 mmol/L (3.5-5.1) 03/06/17 16:35 Chloride 97 mmol/L (98-107) L 03/06/17 16:35 Carbon Dioxide 30 mmol/L (22-30) 03/06/17 16:35 Anion Gap 8 mmol/L 03/06/17 16:35 BUN 14 mg/dL (7-17) 03/06/17 16:35 Creatinine 0.57 mg/dL (0.52-1.04) 03/06/17 16:35 Est GFR (MDRD) Af Amer >60 (>60 ml/min/1.73 sqM) 03/06/17 16:35 Est GFR (MDRD) Non-Af >60 (>60 ml/min/1.73 sqM) 03/06/17 16:35 Glucose 111 mg/dL (74-99) H 03/06/17 16:35 Calcium 9.9 mg/dL (8.4-10.2) 03/06/17 16:35 Total Bilirubin 0.4 mg/dL (0.2-1.3) 03/06/17 16:35 AST 18 U/L (14-36) 03/06/17 16:35 ALT 20 U/L (9-52) 03/06/17 16:35 Alkaline Phosphatase 72 U/L (38-126) 03/06/17 16:35 C-Reactive Protein 82.4 mg/L (<10.0) H 03/08/17 04:50 Total Protein 6.5 g/dL (6.3-8.2) 03/06/17 16:35 Albumin 2.9 g/dL (3.5-5.0) L 03/06/17 16:35 Prealbumin 8 mg/dL (18-36) L 03/08/17 04:50 Microbiology 03/06/17 18:30 Axilla - Right Gram Stain - Final 03/06/17 18:30 Axilla - Right Wound Culture - Final Staphylococcus aureus Assessment and Plan (1) Metastatic squamous cell carcinoma Status: Chronic (2) Cellulitis of right axilla Narrative/Plan: 86-year-old female who has a history of squamous cell carcinoma of the right axillary area that is metastatic and extranodal. She's had biopsy and radiation therapy. She apparently has had some chronic serous drainage since the interventions occurred. She presents to the hospital with severe acute pain to the right arm. Evaluation revealed evidence of a deep venous thrombosis which may be the etiology of the current change of swelling and pain. She's been seen by hematology oncology. And is receiving anticoagulation with heparin. It is so the patient has had radiation to the area and likely is having some difficulties related to that as far as a nonhealing nature to the tissue. However likely has chronic lymphatic drainage to the area. Does however have evidence of a secondary staphylococcal infection at this point in time. Daptomycin was added to try to avoid utilization of vancomycin with his many toxicities. Fortunately MSSA has been isolated. Antibiotic therapy is altered to high-dose Cefazolin. Cultures are process will further direct antibiotic therapy. Blood culture are in process and negative so far. Very low prealbumin she has evidence of significant protein calorie malnutrition and need supplementation The patient's fears are addressed, we'll ensure that she has good pain control which is something she is very worried about. Continue to elevate the limb on pillows as she is doing. ABD is used for drainage control. At this time is not clear with the plan will be at the time of discharge. May do well for a several week course of intravenous antibiotic therapy because the very complex nature of the swelling to the arm from the clot, cancer in a somewhat difficult to clear bacteria. Status: Acute (3) DVT of right axillary vein, acute Status: Acute
[2017-03-09] MEDS: ceFAZolin 2 GM in SODIUM CHLORIDE 0.9% 100 ML IVPB SCH ×3 (01:09→16:50)
[2017-03-09] MEDS: HYDROmorphone 1 MG/ML 1 ML SYRINGE IV PRN (03:38)
[2017-03-09 05:54] LABS: Basophils % (A) 0 %; CH 28.2; CHCM 31.4; Eosinophils # (A) 0.1 k/uL (0-0.7); Eosinophils % (A) 2 %; HDW 2.58; HGB 10.3 gm/dL (11.4-16.0); Hypochromasia Slight; Luc # (Auto) 0.23; Luc % (Auto) 4; Lymphocytes # (A) 0.6 k/uL (1.0-4.8); Lymphocytes % (A) 10 %; MCH 29.2 pg (25.0-35.0); MCHC 32.3 g/dL (31.0-37.0); MCV 90.4 fL (80.0-100.0); Mean Platelet Volume 6.1; Monocytes # (A) 0.5 k/uL (0-1.0); Monocytes % (A) 8 %; Neutrophils # (A) 4.9 k/uL (1.3-7.7); Neutrophils % (A) 77 %; RBC 3.54 m/uL (3.80-5.40); RDW 14.1 % (11.5-15.5); WBC 6.4 k/uL (3.8-10.6); WBC (Perox) 6.74
[2017-03-09] MEDS: LOSARTAN 50 MG TAB PO SCH (08:39)
[2017-03-09] MEDS: HYDROcodone/APAP 5-325MG 1 EACH TAB PO PRN ×2 (08:39→14:23)
[2017-03-09] MEDS: SODIUM CHLORIDE 0.9% 1,000 ML IV SCH (08:40)
[2017-03-09] MEDS: HYDROCHLOROTHIAZIDE 25 MG TAB PO SCH (08:40)
--- NOTE | 2017-03-09 08:57 | PN ---
DATE OF SERVICE: 03/09/2017 The patient is seen on rounds. She says she is having less pain in her shoulder and axilla unless it is moved. She has been afebrile. Vital signs are stable. There seems to be less erythema and swelling around the shoulder. The arm has some edema, which looks chronic. She has continued drainage in the axilla. Culture did grow methicillin sensitive Staphylococcus aureus. ASSESSMENT: 1. Deep venous thrombosis right upper extremity. 2. Metastatic squamous cell carcinoma. 3. Methicillin-sensitive Staphylococcus aureus cellulitis. PLAN: I had discussed the case with the patient's daughter yesterday and Dr. Isaac the day before. Will continue treatment for her DVT and the infection. I will see her in the office in 3 to 4 weeks and re-evaluate the axilla. At that time, we will decide whether there is anything additional that can be done surgically.
[2017-03-09 14:50] VITALS: BP 148/68; PULSE 97; RESP 20; TEMP 99.9
--- NOTE | 2017-03-09 15:27 | P.DS ---
Providers Date of admission: 03/06/17 17:32 Expected date of discharge: 03/09/17 Attending physician: Joe Dejesus Consults: 03/06/17 18:07 Consult Physician Routine Consulting Provider: Libby Funez Consult Reason/Comments: right axilla cellulitis Do you want consulting provider notified?: Yes 03/06/17 18:12 Consult Physician Routine Consulting Provider: Eduard Isaac Consult Reason/Comments: DVT Do you want consulting provider notified?: Already Contacted 03/07/17 09:46 Consult Physician Routine Consulting Provider: Steven Larose Consult Reason/Comments: righ axilla cellulitis Do you want consulting provider notified?: Yes Primary care physician: Art Caicedo Hospital Course: Final Diagnoses: 1. Acute cellulitis of the right axilla, wound culture with staph aureus. 2. Acute DVT of the right axilla vein and one of 2 brachial veins 3. Soft tissue mass in the axilla vessels per ultrasound 4. Squamous Cell CA, metastatic 5. Hypertension 6. Status post radiation 7. Right upper arm weakness secondary to the above 8. History of depression not otherwise specified 9. Moderate Protein calorie malnutrition Hospital course: This is an 86-year-old female with history of Squamous Cell CA , metastatic, had an axillary mass biopsied outpatient on 09/13/2016-please refer to oncology's note, status post radiation admitted with acute cellulitis of the right axilla, acute DVT of the right axillary vein and one of 2 brachial veins. Significant soreness, tenderness, unable to palpate area for mass at this time. Evaluated by infectious disease, oncology/hematology and surgery . Anticoagulation initially with Xarelto, then changed to heparin drip while inpatient as per oncology. Maintained on IV antibiotics and IV antibiotics, with significant clinical improvement. Patient will require further workup outpatient with oncology. Patient has been cleared for discharge by both infectious disease and oncology. Patient is being discharged to [facility] in stable condition with guarded prognosis. Microbiology 03/08/17 08:52 Blood Blood Culture - Preliminary No Growth after 24 hours 03/08/17 04:50 Blood Blood Culture - Preliminary No Growth after 24 hours 03/06/17 18:30 Axilla - Right Gram Stain - Final 03/06/17 18:30 Axilla - Right Wound Culture - Final Staphylococcus aureus Patient Condition at Discharge: Stable Plan - Discharge Summary New Discharge Prescriptions: Cephalexin [Keflex] 500 mg PO Q8HR #63 cap HYDROcodone/APAP 5-325MG [[place] 5-325] 1 each PO Q6HR PRN #20 tab PRN Reason: Pain Melatonin 3 mg PO HS PRN #1 tablet PRN Reason: Insomnia Discharge Medication List Hydrochlorothiazide 25 mg PO DAILY 09/09/16 [History] Losartan Potassium [Cozaar] 100 mg PO DAILY 09/09/16 [History] Cephalexin [Keflex] 500 mg PO Q8HR #63 cap 03/09/17 [Rx] HYDROcodone/APAP 5-325MG [[place] 5-325] 1 each PO Q6HR PRN #20 tab 03/09/17 [Rx] Melatonin 3 mg PO HS PRN #1 tablet 03/09/17 [Rx] Rivaroxaban [Xarelto] 15 mg PO BID-W/MEALS tab 03/09/17 [Rx] Follow up Appointment(s)/Referral(s): Eduard Isaac MD [STAFF PHYSICIAN] - 2 Weeks Libby Funez DO [Doctor of Osteopathic Medicine] - 3 Weeks (3-4 weeks.) Steven Larose MD [STAFF PHYSICIAN] - 3 Weeks Art Caicedo DO [Primary Care Provider] - 1-2 days Patient Instructions/Handouts: Deep Venous Thrombosis (DC), Fall Prevention for Older Adults (GEN) Activity/Diet/Wound Care/Special Instructions: Cardiac diet [facility]. Wound care/dressing changes as per ID. CBC, BMP in 3 days Diet: Cardiac, ensure supplements between meals and at bedtime snack; assistance with all meals Activity: As tolerated Discharge Disposition: TRANSFER TO SNF/ECF
--- NOTE | 2017-03-09 15:53 | XR ---
EXAMINATION TYPE: XR chest 2V DATE OF EXAM: 03/09/2017 3:16 PM COMPARISON: NONE INDICATION: ECF placement TECHNIQUE: Single frontal view of the chest is obtained. FINDINGS: The heart size is normal. The pulmonary vasculature is nearly the upper limits of normal. Posterior pleural effusions are evident. IMPRESSION: 1. Small posterior pleural effusions. 2. A degree of COPD may be present.
[2017-03-09] MEDS ORDERED: RIVAROXABAN 15 MG TAB PO SCH (17:30)
--- NOTE | 2017-03-09 18:38 | P.PN ---
Subjective Date of service 03/08/2017. Progress note being dictated for . Interval history:This is an 86-year-old female with history of Squamous Cell CA , metastatic, had an axillary mass biopsied outpatient on 09/13/2016-please refer to oncology's note, status post radiation admitted with acute cellulitis of the right axilla, acute DVT of the right axillary vein and one of 2 brachial veins. Continues to have Significant soreness, tenderness, unable to palpate area for mass at this time. States has pain today. Anticoagulated on heparin drip . Maintained on IV antibiotics and wound care as per ID. Final cultures pending. States left arm swelling, redness slowly improving. Decreased sensation in hand, especially and fingers, unable to grasp with right hand. Requires assistance with all meals. Afebrile, normal WBC. Denies chest pain, palpitations, or increasing shortness of breath. Objective - Vital Signs Vital signs: Vital Signs Temp 99.3 F 03/08/17 15:00 Pulse 87 03/08/17 15:00 Resp 20 03/08/17 15:45 BP 157/63 03/08/17 15:00 Pulse Ox 96 03/08/17 15:00 Intake & Output 03/08/17 03/08/17 03/09/17 06:59 18:59 06:59 Intake Total 617.594 889.398 93.008 Balance 617.594 889.398 93.008 Intake: Intake, IV Titration 117.594 289.398 93.008 Amount Heparin Sodium,Porcine/ 117.594 289.398 93.008 D5w Pmx 25,000 unit In Dextrose/Water 1 500ml. bag @ 12 UNITS/KG/HR 16. 68 mls/hr IV .Q24H [facility] Rx #:[id number] Oral 500 600 Other: # Voids 1 2 - Exam PHYSICAL EXAM: VITAL SIGNS: As above GENERAL: [Sitting up in chair, no acute distress] HEENT: [Pupils equal conjunctiva normal.] NECK: [Supple, no JVD] RESPIRATORY EFFORT:[Normal] LUNGS: [Bilateral bases diminished, no wheezes rhonchi or crackles] CARDIOVASCULAR[regular S1, S2, decreasing edema] GI: [Abdomen soft, nontender, positive bowel sounds.] PSYCH: [Alert and oriented -3, mood and affect normal.] SKIN: As mentioned above decreasing redness, edema, and drainage NEURO: As mentioned above decreased sensation of the right hand, more so in the fingers, extremity warm, positive radial pulse. Unable to grasp performed a fist the right hand, ] - Labs CBC & Chem 7: 03/09/17 05:32 03/06/17 16:35 Labs: Abnormal Lab Results - Last 24 Hours (Table) 03/08/17 03/08/17 03/08/17 Range/Units 04:50 04:50 04:50 RBC 3.53 L (3.80-5.40) m/uL Hgb 10.3 L (11.4-16.0) gm/dL Hct 32.6 L (34.0-46.0) % Lymphocytes # 0.6 L (1.0-4.8) k/uL ESR 87 H (0-20) mm/hr APTT 34.5 H (22.0-30.0) sec C-Reactive Protein (<10.0) mg/L Prealbumin (18-36) mg/dL 03/08/17 03/08/17 03/08/17 Range/Units 04:50 08:52 16:56 RBC (3.80-5.40) m/uL Hgb (11.4-16.0) gm/dL Hct (34.0-46.0) % Lymphocytes # (1.0-4.8) k/uL ESR (0-20) mm/hr APTT 31.2 H 47.2 H (22.0-30.0) sec C-Reactive Protein 82.4 H (<10.0) mg/L Prealbumin 8 L (18-36) mg/dL Microbiology - Last 24 Hours (Table) 03/06/17 18:30 Gram Stain - Final Axilla - Right Wound Culture - Final Staphylococcus aureus Assessment and Plan Plan: 1. Acute cellulitis of the right axilla, wound culture with staph aureus. 2. Acute DVT of the right axilla vein and one of 2 brachial veins 3. Soft tissue mass in the axilla vessels per ultrasound 4. Squamous Cell CA, metastatic 5. Hypertension 6. Status post radiation 7. Right upper arm weakness secondary to the above 8. History of depression not otherwise specified 9. Moderate Protein calorie malnutrition Plan: Continue on current medication regime ,monitoring and symptomatic treatment. Wound care and antibiotics as per infectious disease, final cultures pending. Protein supplements between meals and daily at bedtime snack. Continue on heparin drip as per oncology/hematology, convert over to Xarelto at discharge. Subacute rehab been arranged for discharge per social work. The impression and plan of care has been dictated as directed. : I performed a H&P examination of this patient and discussed the same with the dictator. I agree with the dictator's note. Any additional findings/opinions/ etc. will be noted.
== END 2017-03-09 18:01 | DRG 300 ==
LOC: EC 14:00 → 4MS4W 17:32
PROVIDERS: ADMIT Hospitalist; ATTEND Hospitalist
DX: I82.A11 Acute embolism and thrombosis of right axillary vein (principal); L03.111 Cellulitis of right axilla; E44.0 Moderate protein-calorie malnutrition; C79.89 Secondary malignant neoplasm of other specified sites; E87.1 Hypo-osmolality and hyponatremia; B95.61 Methicillin susceptible Staphylococcus aureus infection as the cause of diseases classified elsewhere; M19.91 Primary osteoarthritis, unspecified site; I10 Essential (primary) hypertension; F32.9 Major depressive disorder, single episode, unspecified; Z92.3 Personal history of irradiation; Z98.42 Cataract extraction status, left eye; Z85.828 Personal history of other malignant neoplasm of skin; Z79.899 Other long term (current) drug therapy
CPT/HCPCS: 36415; 71020; 80053; 84134; 85025; 85610; 85652; 85730; 86140; 87040; 87070; 87077; 87186; 87205; 96361; 96365; 96375; 96376; 99285